=== PATIENT | female | born 1965 | race Caucasian/White ===

== ENCOUNTER 2021-08-02 15:20 | Outpatient (CLI) | payer OTHER, SELFPAY ==
--- NOTE | ~2021-08-02 | CT_ITS ---
EXAMINATION: CT lung screening DATE: 08/02/2021 15:59 INDICATION: Current smoker. History of nicotine dependence. TECHNIQUE: Computed tomography (CT) of the chest was performed without intravenous contrast. The dose -length product was 63.59 mGy-cm. Automated exposure control and iterative reconstruction technique w ere employed. COMPARISON: Chest dated 12/04/2017 FINDINGS: Heart size normal. No significant pleural or pericardial effusion. Upper abdomen is unremar kable. No thoracic lymphadenopathy. No evidence for significant vascular abnormality. There is emphys harvinder. There is calcified nodule right upper lobe, consistent with chronic granulomatous disease. No en dobronchial lesions. There are a few upper lobe nodules measuring 2 mm or less, likely benign. There is a 3 mm left lower lobe nodule, image 91. There is a 3 mm right lower lobe nodule, image 108. No pn eumothorax. Mild thoracic spondylosis. IMPRESSION: 1. Lung-RADS category 2: Benign appearance or behavior. Continue annual screening with noncontrast lo w-dose chest CT in 12 months. Reviewed, dictated and finalized at location A. IMPRESSION: 1. Lung-RADS category 2: Benign appearance or behavior. Continue annual screeni ng with noncontrast low-dose chest CT in 12 months.
--- OUTSIDE RECORDS SUMMARY | 2021-11-18 16:02 | XMS_ITS | Referral Summary ---
:1965 Author Organization [facility] Address [address], [place] [id number] [place] [id number] Care Team Providers Name Role Phone Alivia Ochoa Primary Care Provider Reason for Referral Consultation (Routine) - New Request Specialty Diagnoses / Procedures Referred By Contact Refer red To Contact Diagnoses Positive colorectal cancer screening using Cologuard test Alivia Ochoa FNP [address] [address] Fax: Referral ID Status Reason Start Date Expiration Date Visits V isits Requested Authorized [id number] New Request 11/15/2021 12/13/20[address] Timothy Dubon [employer] Reason for Visit Reason Onset Date Comments Lab Results 11/10/2021 Encounter Details Date Type Department Care Team Description 11/10/2021 Telephone [facility] & Alivia Turner FNP Lab Results Internal Medicine - [address] [place] [address]
== END 2021-08-02 15:21 | disposition home or self-care (01) ==
LOC: ANHIMG 15:28
PROVIDERS: PCP Nurse Practitioner Family; Visit Provider Nurse Practitioner Family
DX: F17.200 Nicotine dependence, unspecified, uncomplicated (principal)
CPT/HCPCS: 71271